=== PATIENT | female | born 1975 ===

== ENCOUNTER 2023-10-16 15:42 | Emergency (ER) | payer SELFPAY ==
[~2023-10-16] VITALS: Ht 152.4 cm; Wt 61.4 kg
[2023-10-16 15:59] VITALS: TEMP 98.3
[2023-10-16] MEDS: SODIUM CHLORIDE 0.9% 1,000 ML IV ONE (17:31)
[2023-10-16] MEDS: KETOROLAC TROMETHAMINE 30 MG/ML VIAL IVP ONE (17:31)
[2023-10-16] MEDS: MORPHINE SULFATE 4 MG/ML SYRINGE IVP ONE (17:31)
[2023-10-16] MEDS: ONDANSETRON HCL 4 MG/2 ML VIAL IVP ONE (17:31)
[2023-10-16 17:33] LABS: EOSINOPHILS % (AUTO) 3.2 % (1.0-6.0); HEMATOCRIT 43.4 % (36-46); HEMOGLOBIN 14.8 g/dL (12.0-16.0); LYMPHOCYTES # (AUTO) 2.3 K/uL (1.0-4.8); LYMPHOCYTES % (AUTO) 22.8 % (22.0-44.0); MEAN CORPUSCULAR HEMOGLOBIN 29.7 pg (26.0-34.0); MEAN CORPUSCULAR VOLUME 87 fL (80-100); MONOCYTES # (AUTO) 0.5 K/uL (0.1-1.0); MONOCYTES % (AUTO) 5.5 % (2.0-9.0); NEUTROPHILS # (AUTO) 6.8 K/uL (1.8-7.7); NEUTROPHILS % (AUTO) 67.5 % (40.0-70.0); PLATELET COUNT (AUTO) 317 K/uL (150-450); RED BLOOD CELL COUNT(AUTO) 4.97 MIL/uL (4.00-5.20); RED CELL DISTRIBUTION WIDTH 13.1 % (11.5-14.5)
[2023-10-16 17:42] LABS: ANION GAP 10 mmol/L (8-16); CALCIUM, TOTAL 9.2 mg/dL (8.8-10.5); CARBON DIOXIDE 26 mmol/L (22-29); CHLORIDE 107 mmol/L (98-107); CREATININE 0.79 mg/dL (0.60-1.30); GLOMERULAR FILTR. RATE CALC > 60 mL/min (>60); GLUCOSE,RANDOM 114 mg/dL (70-110); SODIUM SERUM 143 mmol/L (136-145); UREA NITROGEN, BLOOD 17 mg/dL (7-18)
[2023-10-16 17:48] LABS: ALANINE AMINOTRANSFERASE 48 U/L (12-78); ALBUMIN 3.9 g/dL (3.4-5.0); ALKALINE PHOSPHATASE 96 U/L (46-116); ASPARTATE AMINOTRANSFERASE 28 U/L (15-37); BILIRUBIN,TOTAL 0.3 mg/dL (0.1-1.0); LIPASE 40 U/L (16-77); TOTAL PROTEIN, SERUM 7.8 g/dL (6.4-8.2)
[2023-10-16] MEDS ORDERED: PSEU-191 PO (18:37)
[2023-10-16] MEDS ORDERED: ONDA-104 PO (18:37)
[2023-10-16] MEDS ORDERED: IBUP-1554 PO (18:37)
[2023-10-16] MEDS ORDERED: HYDR-4723 PO (18:37)
[2023-10-16 18:51] VITALS: BP 136/75; PULSE 73; RESP 18
== END 2023-10-16 18:56 | disposition home or self-care (01) ==
LOC: EMS 15:45
DX: J32.9 Chronic sinusitis, unspecified (principal); R51.9 Headache, unspecified; Z90.710 Acquired absence of both cervix and uterus
CPT/HCPCS: 99285; 96374; 70450; 96375; 96361; 80053; 83690; 85025; 36415; J1885; J2270; J2405; J7030